=== PATIENT | male | born 2000 | race Caucasian/White ===

== ENCOUNTER 2022-12-15 21:26 | Emergency (ER) | payer OTHER, SELFPAY ==
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
[2022-12-15 21:33] VITALS: BP 106/65; BP 126/65; PULSE 60; PULSE 68; RESP 12; TEMP 37; O2SAT 95; O2SAT 98; BMI 22.1
[2022-12-15 21:37] LABS: Glucose, Whole Blood 81 mg/dL (60-115)
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
[2022-12-15 22:37] VITALS: BP 110/53; PULSE 58; RESP 12; TEMP 36.7; O2SAT 98
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
[2022-12-16 00:37] VITALS: BP 108/68; PULSE 62; RESP 18; TEMP 36.6; O2SAT 100
== END 2022-12-16 01:15 | disposition home or self-care (01) ==
PROVIDERS: Emergency Provider Emergency Medicine
DX: S09.90XA Unspecified injury of head, initial encounter (principal); V47.5XXA Car driver injured in collision with fixed or stationary object in traffic accident, initial encounter; R51.9 Headache, unspecified; Y93.89 Activity, other specified; Y92.9 Unspecified place or not applicable; Y99.9 Unspecified external cause status
CPT/HCPCS: 70450; 82947; 99284